=== PATIENT | female | born 1940 | race Caucasian/White ===

== ENCOUNTER 2017-02-02 10:04 | Inpatient (IN) | payer MEDICARE, OTHER ==
[2017-02-02] VITALS (35 sets, daily range): BP systolic 50–188; BP diastolic 36–130
[~2017-02-02] VITALS: Ht 152.4 cm; Wt 110.3 kg
--- NOTE | 2017-02-02 10:05 | NUR ---
JESUS 89 FROM HOME S/O SOB SPO2=70% ON RA, BREATHING TREATMENT DIRECTOR OF CARDIAC CATH LAB, RT, MD AT BEDSIDE.
--- NOTE | 2017-02-02 10:24 | NUR ---
xray at bedside
[2017-02-02 10:29] LABS: ABG BASE EXCESS -1.1 mmol/L; ABG OXYGEN SATURATION 96.3 % (92.0-98.5); ABG PCO2 65.6 mmHg (35.0-45.0); ABG PH 7.248 (7.350-7.450); ABG PO2 94.5 mmHg (75.0-100.0); AaDO2 552.9 mmHg; COHb 0.9 % (0.5-1.5); MetHb 0.4 % (0.0-1.5); SITE, ABG Right Radial; VENT MODE, BG BIPAP 20/10 100%
[2017-02-02] MEDS ORDERED: FUROSEMIDE 40 MG/4 ML VIAL IV ONE ×2 (10:30→13:30)
[2017-02-02] MEDS ORDERED: DILTIAZEM HCL 25 MG IV IV ONE (10:30)
[2017-02-02] MEDS ORDERED: FUROSEMIDE 40 MG/4 ML VIAL ONE (10:32)
[2017-02-02] MEDS ORDERED: DILTIAZEM HCL 25 MG IV ONE (10:32)
[2017-02-02] MEDS ORDERED: WARF1TAB47 PO (10:33)
[2017-02-02] MEDS ORDERED: FURO40TA5 PO (10:33)
[2017-02-02] MEDS ORDERED: OLOP2.5D EACHEYE (10:33)
[2017-02-02] MEDS ORDERED: POTA10TA15 PO (10:33)
[2017-02-02] MEDS ORDERED: CHOL100044 PO (10:33)
[2017-02-02] MEDS ORDERED: ALPR0.255 PO (10:33)
[2017-02-02] MEDS ORDERED: DIPH25CA6 PO (10:33)
[2017-02-02] MEDS ORDERED: HYDR-548 PO (10:33)
[2017-02-02] MEDS ORDERED: ESTR42.53 VG (10:33)
[2017-02-02] MEDS ORDERED: CRAN400T4 PO (10:33)
[2017-02-02] MEDS ORDERED: SODI100P DT (10:33)
[2017-02-02] MEDS ORDERED: GABA800T2 PO (10:33)
[2017-02-02] MEDS ORDERED: ATOR10TA PO (10:33)
[2017-02-02] MEDS ORDERED: QUIN20TA31 PO (10:33)
[2017-02-02] MEDS ORDERED: LEVO125T8 PO (10:33)
[2017-02-02] MEDS ORDERED: DILT-44 PO (10:33)
[2017-02-02] MEDS ORDERED: DORZ10DR13 EACHEYE (10:33)
--- NOTE | 2017-02-02 10:35 | NUR ---
PT REC'D ON NEB MASK 8L. RESP DISTRESS AND SOB NOTED. PT PLACED ON BIPAP PER DR DECKER REQUEST. BIPAP PLUGGED INTO RED OUTLET. ALARMS ARE SET AND AUDIBLE. MICHELLU RICHMOND BEDSIDE. WILL CONTINUE TO MONITOR/ Addendum: 02/02/17 at 1037 by ISRAEL GILMORE RT Amended: Links added.
[2017-02-02] MEDS ORDERED: EYE15DRO EACHEYE (10:39)
[2017-02-02] MEDS ORDERED: [UNRECOGNIZED DRUG - OTHER] PO (10:39)
--- NOTE | 2017-02-02 10:40 | NUR ---
DR WERNER AT BEDSIDE FOR EVAL
[2017-02-02] MEDS ORDERED: ONDANSETRON HCL/PF 4 MG/2 ML VIAL ONE (10:45)
[2017-02-02] MEDS ORDERED: WARF3TAB29 PO (10:52)
[2017-02-02 10:53] LABS: BASOPHILS # (AUTO) 0.1 /CMM (0.0-0.2); BASOPHILS % (AUTO) 0.5 % (0.0-2.0); EOSINOPHILS # (AUTO) 0.1 /CMM (0.0-0.7); EOSINOPHILS % (AUTO) 0.4 % (0.0-6.0); HEMATOCRIT 48 % (33-45); HEMOGLOBIN 15.5 g/dL (11.5-14.8); LYMPHOCYTES # (AUTO) 2.3 /CMM (0.8-4.8); LYMPHOCYTES % (AUTO) 14.7 % (20.0-44.0); MEAN CORPUSCULAR HEMOGLOBIN 30 PG (26.0-33.0); MEAN CORPUSCULAR HGB CONC 33 g/dl (31.0-36.0); MEAN CORPUSCULAR VOLUME 91 fL (82-100); MONOCYTES # (AUTO) 0.3 /CMM (0.1-1.30); NEUTROPHILS # (AUTO) 12.7 /CMM (1.8-8.9); NEUTROPHILS % (AUTO) 82.4 % (43.0-81.0); PLATELET COUNT (AUTO) 232 /CMM (150-450); RDW COEFFICIENT OF VARIATION 12.8 (11.5-15.0); RED BLOOD CELL COUNT(AUTO) 5.25 MIL/uL (4.0-5.2); WHITE BLOOD COUNT (AUTO) 15.5 K/uL (4.3-11.0)
[2017-02-02] MEDS ORDERED: ONDANSETRON HCL/PF - ER 4 MG/2 ML VIAL IV ONE (11:00)
[2017-02-02 11:03] LABS: CALCIUM, SERUM 8.9 mg/dL (8.5-10.1); CARBON DIOXIDE 29 mmol/L (21-32); CHLORIDE 102 mmol/L (98-107); CREATININE 0.9 mg/dL (0.6-1.3); GLUCOSE 153 mg/dL (74-106); POTASSIUM 4.5 mmol/L (3.5-5.1); SODIUM SERUM 137 mmol/L (136-145); UREA NITROGEN, BLOOD 14 mg/dL (7-18)
[2017-02-02 11:06] LABS: INR 2.15 (0.87-1.13); PROTHROMBIN TIME 23.3 SECS (9.5-12.7)
[2017-02-02 11:10] LABS: TROPONIN I < 0.017 ng/mL (0.00-0.056)
[2017-02-02 11:15] LABS: ALANINE AMINOTRANSFERASE 17 U/L (12-78); ALBUMIN 3.9 g/dL (3.4-5.0); ALKALINE PHOSPHATASE 86 U/L (46-116); ASPARTATE AMINOTRANSFERASE 22 U/L (15-37); B-TYPE NATRIURETIC PEPTIDE 722 PG/ML (0-125); BILIRUBIN,DIRECT 0.1 mg/dL (0.0-0.2); BILIRUBIN,TOTAL 0.5 mg/dL (0.2-1.0); TOTAL PROTEIN, SERUM 7.7 g/dL (6.4-8.2)
--- NOTE | 2017-02-02 11:19 | NUR ---
CALLED PANEL FOR ADMIT. WHEEL AND CASTER REPAIRER PAGED FOR CALLBACK
--- NOTE | 2017-02-02 11:25 | NUR ---
ELSIE UTILITY FORESTER FROM [facility] CALLED. BED GIVEN IN PSYCH UNIT [address] DEVINE
--- NOTE | 2017-02-02 11:44 | NUR ---
REPORT GIVEN TO ARPY - ICU .
[2017-02-02] MEDS ORDERED: MAG HYDROX/AL HYDROX/SIMETH 30 ML UDC PO PRN (12:00)
[2017-02-02] MEDS ORDERED: DILTIAZEM HCL 25 MG IV IV PRN (12:00)
[2017-02-02] MEDS ORDERED: ZOLPIDEM TARTRATE 5 MG TABLET PO PRN (12:00)
[2017-02-02] MEDS ORDERED: [UNRECOGNIZED DRUG - OTHER] DT SCH (12:00)
[2017-02-02] MEDS ORDERED: HYDROCODONE/APAP 10/325MG 1 EA TABLET PO PRN (12:00)
[2017-02-02] MEDS ORDERED: ACETAMINOPHEN 325 MG TABLET PO PRN (12:00)
[2017-02-02] MEDS ORDERED: ONDANSETRON HCL/PF 4 MG/2 ML VIAL IVP PRN (12:00)
[2017-02-02] MEDS ORDERED: MAGNESIUM HYDROXIDE 30 ML UDC PO PRN (12:00)
[2017-02-02] MEDS ORDERED: LEVOFLOXACIN 750 MG /D5W 150ML 150 ML IV SCH (12:00)
[2017-02-02] MEDS ORDERED: SODIUM FLUORIDE DT SCH (12:00)
[2017-02-02] MEDS ORDERED: Z GUARD REMEDY 2 OZ OINT TP PRN (12:00)
[2017-02-02] MEDS ORDERED: HYDROCODONE/APAP 5/325MG 1 EACH TABLET PO PRN (12:00)
[2017-02-02] MEDS ORDERED: LORAZEPAM INJ 2 MG/ML VIAL IV PRN (12:00)
[2017-02-02] MEDS: IPRATROPIUM NEB FS 0.5 MG/2.5 ML AMPUL.NEB NEB SCH ×3 (12:00→19:36)
[2017-02-02] MEDS ORDERED: POTASSIUM NITRATE DT SCH (12:00)
--- NOTE | 2017-02-02 12:00 | NUR ---
ICU/BARREL TURNER NOTE RECEIVED REPORT FROM BARTOLO SIFUENTES IN ER. PT TRANSFERRED TO ROOM 258 VIA GURNEY. RECEIVED PT ON BIPAP WITH SETTINGS ORDERED BY MD. PT ABLE TO MAINTAIN 02 SAT >95%. PT ON TELE, CONTROLLED ATRIAL FIB. PT ALERT, AWAKE, ORIENTED TO PERSON, PLACE AND TIME. AND DAUGHTERS AT BEDSIDE. CANTU IN PLACE, DRAINING YELLOW URINE. PIV'S PATENT AND INTACT, NO S/S OF INFECTION OR INFILTRATION NOTED. SKIN INTACT. LAB VALUES RECEIVED, LACTIC PENDING. ALL NEEDS WILL BE MET, SAFETY MEASURES TAKEN, BED IN LOW POSITION, SIDE RAILS UP, CALL LIGHT WITHIN REACH. WILL CONTINUE CARE.
[2017-02-02 12:16] LABS: ABG OXYGEN SATURATION 98.8 % (92.0-98.5); ABG PCO2 42.1 mmHg (35.0-45.0); ABG PH 7.346 (7.350-7.450); ABG PO2 209.9 mmHg (75.0-100.0); COHb 0.9 % (0.5-1.5); MetHb 0.6 % (0.0-1.5); O2Hb 97.3 % (94.0-97.0); PEEP,BG 10 cm H2O; SITE, ABG Right Radial
[2017-02-02 13:23] LABS: VENT MODE, BG 22/10
[2017-02-02] MEDS ORDERED: IV NS 0.9% 250 ML IV ONE (13:30)
[2017-02-02] MEDS: GABAPENTIN 400 MG CAPSULE PO SCH ×2 (13:47→17:24)
[2017-02-02] MEDS ORDERED: WARFARIN SODIUM 1 MG TABLET PO SCH (14:00)
[2017-02-02] MEDS ORDERED: ESTRADIOL 42.5 GM MC SCH (14:00)
[2017-02-02] MEDS ORDERED: LEVOFLOXACIN 750 MG /D5W 150ML 750 MG in PREMIX 1 EA IV SCH (14:00)
[2017-02-02 15:09] LABS: MAGNESIUM 1.9 mg/dL (1.8-2.4)
[2017-02-02] MEDS: POLYVINYL ALCOHOL 15 ML BOTTLE EACHEYE SCH ×2 (15:10→17:18)
[2017-02-02 15:24] LABS: THYROID STIMULATING HORMONE 0.407 uIU/mL (0.358-3.74)
--- NOTE | 2017-02-02 15:30 | NUR ---
ICU/RN: BP DROPPED IN 80S, MD ORDERS RECEIVED FOR 250 BOLUS, WILL FOLLOW THROUGH. WILL CONTINUE TO MONITOR AND ASSESS
[2017-02-02] MEDS ORDERED: DOBUTamine 500 MG in IV D5W 210 ML IV PRN ×4 (17:00)
[2017-02-02] MEDS ORDERED: POTASSIUM CHLORIDE 10 MEQ TABLET.SA PO SCH (17:00)
[2017-02-02] MEDS ORDERED: FUROSEMIDE 40 MG/4 ML VIAL IV SCH (17:00)
[2017-02-02] MEDS: TIMOLOL MAL/DORZOLAM HCL OPHTH 10 ML BOTTLE EACHEYE SCH (17:18)
[2017-02-02] MEDS: OLOPATADINE HCL 0.1% OPHTH BOTTLE EACHEYE SCH (17:18)
[2017-02-02] MEDS: diphenhydrAMINE HCL 25 MG CAPSULE PO SCH (17:26)
--- NOTE | 2017-02-02 17:35 | NUR ---
ICU/RN: PER MD ORDERS PT STARTED ON DOBUTAMINE DRIP. PT'S BLOOD PRESSURE IN 70-80'S SYSTOLIC. WILL CONTINUE TO CLOSELY MONITOR BP AND OTHER VS.
--- NOTE | 2017-02-02 18:15 | NUR ---
ICU/RN: URINE CX AND UA SENT TO LAB
--- NOTE | 2017-02-02 18:15 | NUR ---
ICU/RN: PER MD ORDERS PICC LINE INSERTED, VSS. CONSENT IN CHART
--- NOTE | 2017-02-02 19:19 | NUR ---
ICU/RN ENDING NOTES,AM REPORT ENDORSED TO NIGHT NURSE. PT [id number]. CONTINUES ON BIPAP WITH SETTINGS ORDERED BY MD. NO ACUTE DISTRESS. TOLERATING WELL. CONTROLLED A.FIB. DOBUTAMINE INFUSING AT 4MCG, MAINTAINING BP >90. SAFETY MEASURES TAKEN, BED IN LOW POSITION, SIDE RAILS UP. PICC LINE PATENT AND INTACT. WILL CONTINUE CARE
--- NOTE | 2017-02-02 19:59 | NUR ---
FOUNDRY SUPERVISOR. INITIAL ASSESSMENT. RECEIVED THE PT REST ON THE BED. AWAKE, ALERT, FOLLOW COMMANDS. STOCK SELECTOR SHOWING AFIB CONTROLLED. RATE IS AT THIS TIME 88. BIPAP ON SETTINGS 22/5, RATE 15, FIO2 60%. SAT 98%. HOB ELEVATED. FC PATENT. URINE DRAINING. IV RT UPPER ARM PICC LINE DOBUTAMINE 6 MCG/KG/MIN.HOB ELEVATED. FC PATENT. URINE DRAINING. TURN AND REPOSITION Q2H. WILL CONTINUE TO MONITOR VITALS.
[2017-02-02 20:58] LABS: APPEARANCE,URINE SL CLOUDY (CLEAR); BILIRUBIN,URINE NEGATIVE (NEGATIVE); BLOOD, URINE 2+ Ery/uL (NEGATIVE); COLOR,URINE YELLOW (YELLOW); KETONES,URINE NEGATIVE (NEGATIVE); LEUKOCYTE ESTERASE ,URINE NEGATIVE (NEGATIVE); NITRITE, URINE NEGATIVE (NEGATIVE); PROTEIN,URINE 2+ mg/dl (NEGATIVE); UGLUCOSE NEGATIVE (NEGATIVE); UROBILINOGEN,URINE 0.2 EU/dL (0.2)
--- NOTE | 2017-02-02 21:06 | NUR ---
SCRAP COLLECTOR. RT WRIST NEW IV 18G INSERTED. GOOD BLOOD RETURN. Addendum: 02/03/17 at 0114 by PRASANNA BACON RN WRONG INFORMATION.
[2017-02-02 21:18] LABS: BACTERIA,URINE None seen /HPF (None Seen); RBC,URINE 0-2 /HPF (0-2); SQUAMOUS EPITHELIAL CELL,UR Few /HPF (None Seen); WBC,URINE 0-2 /HPF (0-3)
[2017-02-02 21:19] LABS: URINE AMORPHOUS URATE Moderate /HPF (None Seen)
[2017-02-03] VITALS (25 sets, daily range): BP systolic 95–141; BP diastolic 45–77
--- NOTE | 2017-02-03 01:14 | NUR ---
SENIOR MEDIA DIRECTOR. PT SLEPT WELL. DURING SHIFT.OXYGEN 2L VIA NASAL CANNULA. SAT 98%.
[2017-02-03] MEDS: IPRATROPIUM NEB FS 0.5 MG/2.5 ML AMPUL.NEB NEB SCH ×7 (02:32→23:17)
--- NOTE | 2017-02-03 03:10 | NUR ---
ENVIRONMENTAL PROTECTION GEOLOGIST. AM CARE ORAL CARE, BED BATH GIVEN. LINEN CHANGED, REMAINING SAME OXYGEN 2L VIA NASAL CANNULA. SAT 98%. NO ACUTE DISTRESS NOTED, NETWORK OPERATIONS PROJECT MANAGER SHOWING CONTROLLED AFIB. HOB ELEVATED, IV RT UPPER ARM PICC LINE, DOBUTAMINE 3MCG/KG/MIN, FC PATENT. URINE DRAINING. TURN AND REPOSITION PT INDEPENDENT. WILL CONTINUE TO MONITOR VITALS.
[2017-02-03 04:47] LABS: BASOPHILS % (AUTO) 0.1 % (0.0-2.0); EOSINOPHILS % (AUTO) 0.1 % (0.0-6.0); HEMATOCRIT 38 % (33-45); HEMOGLOBIN 12.7 g/dL (11.5-14.8); LYMPHOCYTES # (AUTO) 1.5 /CMM (0.8-4.8); MEAN CORPUSCULAR HEMOGLOBIN 30 PG (26.0-33.0); MEAN CORPUSCULAR HGB CONC 33 g/dl (31.0-36.0); MEAN CORPUSCULAR VOLUME 91 fL (82-100); MONOCYTES % (AUTO) 6.6 % (2.0-12.0); NEUTROPHILS # (AUTO) 12.4 /CMM (1.8-8.9); NEUTROPHILS % (AUTO) 83.2 % (43.0-81.0); PLATELET COUNT (AUTO) 218 /CMM (150-450); RDW COEFFICIENT OF VARIATION 13.7 (11.5-15.0); RED BLOOD CELL COUNT(AUTO) 4.22 MIL/uL (4.0-5.2)
[2017-02-03 05:01] LABS: CALCIUM, SERUM 8.5 mg/dL (8.5-10.1); CARBON DIOXIDE 30 mmol/L (21-32); CHLORIDE 103 mmol/L (98-107); CREATININE 0.9 mg/dL (0.6-1.3); GLUCOSE 111 mg/dL (74-106); POTASSIUM 5.3 mmol/L (3.5-5.1); SODIUM SERUM 138 mmol/L (136-145); UREA NITROGEN, BLOOD 17 mg/dL (7-18)
[2017-02-03] MEDS ORDERED: FUROSEMIDE 20 MG/2 ML VIAL IV ONE (07:30)
--- NOTE | 2017-02-03 07:30 | NUR ---
ICU/RN: Pt received in bed, eyes closed, breathing even and unlabored, no distress noted. A&Ox4, anxious and restless. Generalized edema noted. Per pt "I have a long hx of lymphadenopathy. I don't believe I have CHF." Educated pt, needs reinforcement.
[2017-02-03] MEDS: LEVOTHYROXINE SODIUM 125 MCG TABLET PO SCH (08:27)
[2017-02-03] MEDS: PANTOPRAZOLE 40 MG TABLET.DR PO SCH (08:28)
[2017-02-03] MEDS: GABAPENTIN 400 MG CAPSULE PO SCH ×3 (08:28→17:04)
[2017-02-03] MEDS: ATORVASTATIN 10 MG TABLET PO SCH (08:28)
[2017-02-03] MEDS: QUINAPRIL HCL 10 MG TABLET PO SCH (08:28)
[2017-02-03] MEDS: TIMOLOL MAL/DORZOLAM HCL OPHTH 10 ML BOTTLE EACHEYE SCH ×2 (08:29→16:47)
[2017-02-03] MEDS: OLOPATADINE HCL 0.1% OPHTH BOTTLE EACHEYE SCH ×2 (08:29→16:47)
--- NOTE | 2017-02-03 08:30 | NUR ---
ICU/RN: Due meds administered. Pt refusing Lasix dose despite education. Bilat lower extremities elevated. Will cont to monitor pt.
[2017-02-03] MEDS: POLYVINYL ALCOHOL 15 ML BOTTLE EACHEYE SCH ×2 (08:31→16:47)
--- NOTE | 2017-02-03 08:32 | NUR ---
FIO2 DECREASED FROM 3LPM O2 FLOW TO 2LPM O2 FLOW. SPO2 96% Addendum: 02/03/17 at 0833 by BRENT LEMA RT Amended: Links added.
[2017-02-03] MEDS ORDERED: [UNRECOGNIZED DRUG - OTHER] PO SCH (09:00)
[2017-02-03 09:08] LABS: ABG BASE EXCESS 3.3 mmol/L; ABG OXYGEN SATURATION 95.2 % (92.0-98.5); ABG PCO2 54.4 mmHg (35.0-45.0); ABG PH 7.358 (7.350-7.450); ABG PO2 78.1 mmHg (75.0-100.0); AaDO2 93.7 mmHg; COHb 0.7 % (0.5-1.5); MetHb 0.5 % (0.0-1.5); O2Hb 94.1 % (94.0-97.0); SITE, ABG Right Radial; VENT MODE, BG nasal cannula
--- NOTE | 2017-02-03 09:30 | NUR ---
ICU/RN: VALENTINA dc'd per Dr Farris's orders. Pt tolerated well. Assisted pt to bedside commode for void trial. Slight SOB noted with exertion. Daughter at bedside, call light within reach. Privacy provided. Will cont to monitor pt.
--- NOTE | 2017-02-03 09:30 | NUR ---
ICU/RN: Dr Farris at bedside; updated on pt status. Pt off Dobutamine drip since 0700 this am. Remains hemodynamically stable, no SOB noted. Pt adamant on going home. Orders to transfer to [facility] noted. oil painter updated.
--- NOTE | 2017-02-03 11:45 | NUR ---
Tele/RN: Pt transported to Tele 324-1 in stable condition accompanied by . Bedside report given to BARTOLO Jimenez. All belongings and medications transferred with pt
--- NOTE | 2017-02-03 12:00 | NUR ---
TELE/RN NOTES PATIENT TRANSITIONED FROM ICU TO MEDICAL SURGICAL UNIT IN STABLE CONDITION. VITAL SIGNS OBTAINED AND DOCUMENTED, WITHIN NORMAL LIMITS. NOT IN ANY FORM OF DISTRESS OR DISCOMFORT. RESPIRATIONS EVEN AND UNLABORED ON 02 AT 2L VIA NC. PER TELE READING SR 82. PICCLINE TO RIGHT UPPER ARM. CANTU REMOVED, PATIENT ABLE TO DRAIN BLADDER, AMBULATED TO BATHROOM WITH ASSIST+ WALKER. FAMILY AT BEDSIDE. WILL CONTINUE TO MONITOR
--- NOTE | 2017-02-03 16:30 | NUR ---
TELE/RN NOTES JULIA FELIX ASSISTED PATIENT TO THE BATHROOM, PROVIDED PRIVACY AND INSTRUCTED PATIENT TO PUSH THE CALL LIGHT WHEN DONE. PATIENT DID NOT CALL FOR HELP INSTEAD TRIED TO HELP HERSELF BACK TO BED WHILE DAUGHTER WALKED INTO THE ROOM GETTING UPSET THAT HER MOTHER WAS NEGLECTED. PATIENT IS ALERT AND ORIENTED X4 ABLE TO COMPREHEND INFORMATION, VERBALIZED UNDERSTANDING WHEN INSTRUCTED ON SAFETY MEASURES. PATIENT PROVIDED BEDSIDE COMMODE, CALL LIGHT PLACED WITHIN EASY REACH, BED ALARM ON. ALL DISCIPLINES FOLLOWED SAFETY PRECAUTIONS AND EDUCATE PATIENT ON THE IMPORTANCE OF USING THE CALL LIGHT FOR ASSISTANCE.
[2017-02-03] MEDS: diphenhydrAMINE HCL 25 MG CAPSULE PO SCH (16:48)
[2017-02-03] MEDS ORDERED: WARFARIN SODIUM 1 MG TABLET PO SCH (17:00)
--- NOTE | 2017-02-03 18:42 | NUR ---
TELE/RN NOTES PATIENT REMAINS STABLE, NO SIGNIFICANT CHANGES NOTED, NO S/S OF COMPLICATIONS. NO ACUTE DISTRESS OR DISCOMFORT, CONTINUES ON 02 ALL DUE MEDICATIONS GIVEN ALL NEEDS MET AND ATTENDED. PATIENT KEPT CLEAN AND DRY, SAFETY PRECAUTIONS RENDERED CALL LIGHT PLACED WITHIN EASY REACH. WILL ENDORSE CARE TO CARPENTER ASSISTANT INSTALLER FOR RADHA
--- NOTE | 2017-02-03 19:40 | NUR ---
TELE/ADDRESSER; RECEIVED PT IN BED SLEEPING. BREATHING NON LABORED. ON TELEMETRY. PICC LINEON WEN. BED ON LOWER POSITION AND LOCKED FOR SAFETY. SIDE RAILS UPPER PART OF BED ARE UP FOR SAFETY. CONTINUE TO MONITOR. CALL LIGHT WITHIN REACH.
--- NOTE | 2017-02-03 20:00 | NUR ---
TELE/PRORATE CLERK; PT ON A-FIB 83 PER MT. BREATHING TREATMENT GIVEN BY THE RT.
--- NOTE | 2017-02-03 20:30 | NUR ---
RN NOTES RESUMED CARE TO PATIENT. RECEIVED PATIENT IN BED, RESTING COMFORTABLY, NO SOB, ON 2LPM VIA NC, SP02 98%. BREATHING IS EVEN AND UNLABORED. NOT IN APPARENT PAIN, NO FACIAL GRIMACING, NO RESTLESSNESS. WEN PICC LINE PATENT AND SECURED WITH DRESSING, ON SALINE LOCK. NEEDS ATTENDED, CALL LIGHT WITHIN REACH.
--- NOTE | 2017-02-03 20:40 | NUR ---
TELE/LABORER PRESTRESSED CONCRETE; PT ENDORSED TO BARTOLO RAVI FOR CONTINUITY OF CARE.
--- NOTE | 2017-02-03 22:48 | NUR ---
RN NOTES PATIENT COMPLAINING OF XANAX NOT INCLUDED IN THE MEDICATION LIST. PATIENT BEEN TAKING XANAX 0.25 QHS FOR 30 SOME YEARS. ON MED RECON, XANAX HELD, WAS CONVERTED TO ATIVAN 0.[address] SINGH. GAVE ORDER TO CONTINUE XANAX 0.25 MG QHS PRN AND DISCONTINUE ATIVAN 0.5 MG IVP. PATIENT IN AGREEMENT.
[2017-02-03] MEDS ORDERED: ALPRAZOLAM 0.25 MG TABLET PO PRN (23:00)
[2017-02-03] MEDS ORDERED: ALPRAZOLAM 0.25 MG TABLET ONE (23:34)
[2017-02-04] VITALS: BP 107/59
[2017-02-04] MEDS: IPRATROPIUM NEB FS 0.5 MG/2.5 ML AMPUL.NEB NEB SCH ×3 (03:18→10:56)
[2017-02-04 04:00] VITALS: BP 113/52
--- NOTE | 2017-02-04 07:15 | NUR ---
KILN LOADER OPENING NOTES RECEIVED PT FROM NIGHTSHIFT NURSE IN STABLE CONDITION. PT IS A/O X4. NO SOB OR SIGNS OF DISTRESS NOTED. BREATHING IS EVEN AND UNLABORED. PT IS ON 2L O2 VIA NC AND SATING WELL @ 94%. PICC LINE NOTED ON RIGHT UPPER ARM. NO REDNESS OR SIGNS OF INFILTRATION NOTED. PT IS A FIB ON THE TELE MONITOR WITH A HR OF 83. PT DENIES ANY DIFFICULTY BREATHING OR PAIN AT THIS TIME. BED IN LOW LOCKED POSITION, SIDE RAILS UP X2, CALL LIGHT WITHIN REACH WALKER BY BEDSIDE, BED ALARM ON. WILL CONTINUE TO MONITOR
[2017-02-04 07:50] LABS: BASOPHILS % (AUTO) 0.3 % (0.0-2.0); EOSINOPHILS % (AUTO) 0.4 % (0.0-6.0); HEMATOCRIT 36 % (33-45); HEMOGLOBIN 11.7 g/dL (11.5-14.8); LYMPHOCYTES # (AUTO) 1.3 /CMM (0.8-4.8); LYMPHOCYTES % (AUTO) 14.2 % (20.0-44.0); MEAN CORPUSCULAR HEMOGLOBIN 29 PG (26.0-33.0); MEAN CORPUSCULAR HGB CONC 32 g/dl (31.0-36.0); MEAN CORPUSCULAR VOLUME 91 fL (82-100); MONOCYTES # (AUTO) 0.7 /CMM (0.1-1.30); MONOCYTES % (AUTO) 8.2 % (2.0-12.0); NEUTROPHILS # (AUTO) 6.9 /CMM (1.8-8.9); NEUTROPHILS % (AUTO) 76.9 % (43.0-81.0); PLATELET COUNT (AUTO) 189 /CMM (150-450); RDW COEFFICIENT OF VARIATION 13.7 (11.5-15.0); RED BLOOD CELL COUNT(AUTO) 3.98 MIL/uL (4.0-5.2)
[2017-02-04] MEDS: OLOPATADINE HCL 0.1% OPHTH BOTTLE EACHEYE SCH (08:27)
[2017-02-04 08:28] LABS: ALANINE AMINOTRANSFERASE 17 U/L (12-78); ALKALINE PHOSPHATASE 64 U/L (46-116); ASPARTATE AMINOTRANSFERASE 16 U/L (15-37); BILIRUBIN,TOTAL 0.7 mg/dL (0.2-1.0); CALCIUM, SERUM 8.8 mg/dL (8.5-10.1); CARBON DIOXIDE 33 mmol/L (21-32); CHLORIDE 104 mmol/L (98-107); CREATININE 0.7 mg/dL (0.6-1.3); GLUCOSE 103 mg/dL (74-106); MAGNESIUM 2.1 mg/dL (1.8-2.4); PHOSPHORUS 3.1 mg/dL (2.5-4.9); POTASSIUM 4.4 mmol/L (3.5-5.1); SODIUM SERUM 142 mmol/L (136-145); TOTAL PROTEIN, SERUM 6.3 g/dL (6.4-8.2); UREA NITROGEN, BLOOD 10 mg/dL (7-18)
[2017-02-04] MEDS: TIMOLOL MAL/DORZOLAM HCL OPHTH 10 ML BOTTLE EACHEYE SCH (08:28)
[2017-02-04] MEDS: LEVOTHYROXINE SODIUM 125 MCG TABLET PO SCH (08:29)
[2017-02-04] MEDS: POLYVINYL ALCOHOL 15 ML BOTTLE EACHEYE SCH (08:29)
[2017-02-04] MEDS: GABAPENTIN 400 MG CAPSULE PO SCH (08:30)
[2017-02-04] MEDS: ATORVASTATIN 10 MG TABLET PO SCH (08:30)
[2017-02-04] MEDS: PANTOPRAZOLE 40 MG TABLET.DR PO SCH (08:30)
[2017-02-04 08:31] VITALS: BP 124/69
[2017-02-04] MEDS: QUINAPRIL HCL 10 MG TABLET PO SCH (08:31)
--- NOTE | 2017-02-04 12:00 | NUR ---
LEGAL INVESTIGATOR D/C NOTES PT WAS DISCHARGED FROM THE HOSPITAL IN STABLE CONDITION. ALL NEEDS WERE MET DURING SHIFT AND ORDERS CARRIED OUT ACCORDINGLY. DISCHARGE INSTRUCTIONS GIVEN TO PATIENT AND ALL DOCUMENTS DISCUSSED WITH PT. COPIES OF ALL FORMS WERE PLACED IN PT'S CHART. PT VERBALIZED UNDERSTANDING OF DISCHARGE INSTRUCTIONS. PT WAS ABLE TO SIGN ALL DISCHARGE FORMS INCLUDING BELONGINGS FORM. PICC LINE WAS SUCCESSFULLY REMOVED WITH NO ADVERSE REACTIONS OR BLEEDING. PT LEFT WITH ALL HER BELONGINGS INCLUDING HER HOME MEDICATIONS FROM THE PHARMACY. [id number] THE PROJECT ECONOMIST ESCORTED SAFELY ESCORTED THE PT TO HER PRIVATE VEHICLE DRIVEN BY HER
[2017-02-05] MEDS ORDERED: WARFARIN SODIUM 1 MG TABLET PO SCH (17:00)
== END 2017-02-04 12:00 | disposition home or self-care (01) | DRG 917 ==
LOC: ER 10:05 → ICU 11:33 → TELE 02-03 11:44 → MED 02-04 11:46
PROVIDERS: ADMIT Internal Medicine; ATTEND Internal Medicine
DX: T40.2X1A Poisoning by other opioids, accidental (unintentional), initial encounter (principal); J96.21 Acute and chronic respiratory failure with hypoxia; J69.0 Pneumonitis due to inhalation of food and vomit; E43 Unspecified severe protein-calorie malnutrition; I50.23 Acute on chronic systolic (congestive) heart failure; E87.2 Acidosis; D68.69 Other thrombophilia; I48.91 Unspecified atrial fibrillation; J96.22 Acute and chronic respiratory failure with hypercapnia; E66.2 Morbid (severe) obesity with alveolar hypoventilation; I11.0 Hypertensive heart disease with heart failure; T42.4X1A Poisoning by benzodiazepines, accidental (unintentional), initial encounter; Z79.01 Long term (current) use of anticoagulants; E03.9 Hypothyroidism, unspecified; E78.5 Hyperlipidemia, unspecified; Z88.2 Allergy status to sulfonamides; Z87.891 Personal history of nicotine dependence; Z66 Do not resuscitate; G89.4 Chronic pain syndrome; Y92.009 Unspecified place in unspecified non-institutional (private) residence as the place of occurrence of the external cause; J40 Bronchitis, not specified as acute or chronic
CPT/HCPCS: 36415; 36569; 36600; 71010-TC; 80048-TC; 80053-TC; 80061-TC; 80076-TC; 81000-TC; 82803-TC; 83605-TC; 83735-TC; 83880; 84100-TC; 84439-TC; 84443-TC; 84484-TC; 85025-TC; 85730-TC; 87040-TC; 87081-TC; 87086-TC; 93307-TC; 94799-TC; 99082-TC; A4216; A4606; C1751; J1250; J1940; J1956; J2405; J3490; J7060; Z7610

== ENCOUNTER 2019-11-18 09:55 | Emergency (ER) | payer MEDICARE, OTHER ==
[~2019-11-18] VITALS: Ht 162.6 cm; Wt 112.0 kg
[~2019-11-18 09:55] MED LIST: ALPR0.255 PO; ATOR10TA PO; CHOL100044 PO; CRAN400T4 PO; DILT-2 PO; DIPH25CA51 PO; DORZ10DR13 EACHEYE; ESTR42.53 VG; EYE15DRO EACHEYE; FURO40TA5 PO; GABA800T11 PO; HYDR-4354 PO; LEVO125T8 PO; OLOP2.5D12 EACHEYE; POTA10TA15 PO; QUIN20TA18 PO; SODI100P DT; WARF1TAB PO; WARF3TAB29 PO; [UNRECOGNIZED DRUG - OTHER] PO
--- NOTE | 2019-11-18 09:55 | NUR ---
PT BIB SENT BY PM FOR ELEVATED POTASSIUM 6.9, PT IS AAOX3, NOT IN RESPIRATORY DISTRESS, HOOKED TO ONLINE PROJECT MANAGER KEPT RESTED AND COMFORTABLE, WILL CONTINUE TO MONITOR.
--- NOTE | 2019-11-18 10:08 | NUR ---
SEEN AND EXAMINED BY MEGHAN HEATH.
--- NOTE | 2019-11-18 10:10 | NUR ---
PT IV LINE ESTABLISHED BLOOD DRAWN AND SENT TO LAB.
[2019-11-18 10:23] LABS: BASOPHILS % (AUTO) 0.3 % (0.0-2.0); EOSINOPHILS % (AUTO) 1.4 % (0.0-6.0); HEMATOCRIT 39 % (33-45); HEMOGLOBIN 12.8 g/dL (11.5-14.8); LYMPHOCYTES # (AUTO) 1.1 /CMM (0.8-4.8); LYMPHOCYTES % (AUTO) 12.2 % (20.0-44.0); MEAN CORPUSCULAR HGB CONC 33 g/dl (31.0-36.0); MEAN CORPUSCULAR VOLUME 94 fL (82-100); MONOCYTES # (AUTO) 0.6 /CMM (0.1-1.30); MONOCYTES % (AUTO) 6.7 % (2.0-12.0); NEUTROPHILS % (AUTO) 79.4 % (43.0-81.0); PLATELET COUNT (AUTO) 354 /CMM (150-450); RED BLOOD CELL COUNT(AUTO) 4.09 MIL/uL (4.0-5.2); WHITE BLOOD COUNT (AUTO) 8.9 K/uL (4.3-11.0)
--- NOTE | 2019-11-18 10:24 | NUR ---
WASTEWATER SUPERVISOR AT BEDSIDE FOR XRAY.
[2019-11-18 10:32] LABS: CARBON DIOXIDE 34 mmol/L (21-32); CHLORIDE 97 mmol/L (98-107); CREATININE 1.1 mg/dL (0.6-1.3); GLUCOSE 140 mg/dL (74-106); POTASSIUM 4.9 mmol/L (3.5-5.1); SODIUM SERUM 136 mmol/L (136-145); UREA NITROGEN, BLOOD 24 mg/dL (7-18)
[2019-11-18 10:45] LABS: B-TYPE NATRIURETIC PEPTIDE 1649 PG/ML (0-125)
[2019-11-18] MEDS ORDERED: BUMETANIDE INJ 0.25 MG/ML VIAL IV ONE (11:00)
[2019-11-18 11:07] VITALS: BP 131/77
--- NOTE | 2019-11-18 11:07 | NUR ---
IV removed. Catheter intact and site benign. Pressure and 4x4 applied to site. No bleeding noted. Patient discharged to home in stable condition. Written and verbal after care instructions given. Patient verbalizes understanding of instruction.
== END 2019-11-18 11:11 | disposition home or self-care (01) ==
LOC: ER 09:55
DX: I11.0 Hypertensive heart disease with heart failure (principal); I50.9 Heart failure, unspecified; E87.3 Alkalosis; I48.91 Unspecified atrial fibrillation; R60.0 Localized edema; E78.5 Hyperlipidemia, unspecified; E03.9 Hypothyroidism, unspecified; E66.2 Morbid (severe) obesity with alveolar hypoventilation; Z68.41 Body mass index [BMI] 40.0-44.9, adult; Z88.2 Allergy status to sulfonamides; Z79.01 Long term (current) use of anticoagulants; Z79.899 Other long term (current) drug therapy; Z01.812 Encounter for preprocedural laboratory examination
CPT/HCPCS: 36415; 71045-TC; 80048-TC; 83880; 84484-TC; 85025-TC